=== PATIENT | female | born 1960 | race American Indian/Alaskan Native ===

== ENCOUNTER 2016-07-19 04:46 | Emergency (ER) | payer OTHER ==
[2016-07-19 06:37] VITALS: BP 159/96
--- NOTE | 2016-07-19 07:52 | Emergency Department Report ---
ED Medical Clearance HPI - General Chief complaint: Medical Clearance Stated complaint: MED REFILL Time Seen by Provider: 07/19/16 07:47 Source: patient Mode of arrival: Ambulatory - History of Present Illness Initial comments: 55-year-old female comes in for request of medication refills of her lisinopril and her metformin. Patient reports she has been out of her medication for 1 week. She does disclose that she has an appointment on Tuesday with [facility]. She just does not feel she should wait any longer for her meds. Patient denies any headaches change of vision nausea vomiting. Home medications: Previous Rx's Medication Instructions Recorded Last Taken Type Lisinopril/Hydrochlorothiazide 1 tab PO QDAY #30 tab 07/19/16 Unknown Rx [Zestoretic 20-25 mg] Metformin HCl [Metformin HCl ER] 1,000 mg PO BID #60 [id number] 07/19/16 Unknown Rx Allergies/Adverse reactions: Allergies Allergy/AdvReac Type Severity Reaction Status Date / Time No Known Allergies Allergy Verified 07/19/16 06:32 ED Review of Systems ROS: Stated complaint: MED REFILL Other details as noted in HPI Comment: All other systems reviewed and negative ED Past Medical Hx - Past Medical History Previous Medical History?: Yes Hx Hypertension: Yes Hx Diabetes: Yes - Surgical History Past Surgical History?: Yes Additional Surgical History: Left Ovary - Social History Smoking Status: Never Smoker Substance Use Type: None - Medications Home Medications: Home Medications Medication Instructions Recorded Confirmed Last Taken Type Lisinopril/Hydrochlorothiazide 1 tab PO QDAY #30 tab 07/19/16 Unknown Rx [Zestoretic 20-25 mg] Metformin HCl [Metformin HCl ER] 1,000 mg PO BID #60 [id number] 07/19/16 Unknown Rx ED Physical Exam - General Limitations: No Limitations - Eye Eye exam: Present: normal appearance, PERRL, EOMI - Respiratory Respiratory exam: Present: normal lung sounds bilaterally - Cardiovascular Cardiovascular Exam: Present: regular rate, normal rhythm, normal heart sounds - GI/Abdominal GI/Abdominal exam: Present: soft, normal bowel sounds. Absent: distended, tenderness ED Course Vital Signs 07/19/16 06:32 Temperature 98.4 F Pulse Rate 67 Respiratory 20 Rate Blood Pressure 159/96 O2 Sat by Pulse 100 Oximetry ED Medical Decision Making - Medical Decision Making Has been evaluated by this provider fast track. Discussed the patient we'll give her refills on her lisinopril hydrochlorothiazide 20/25 mg as well as metformin 1000 mg by mouth twice a day. Encouraged patient to keep her appointment for Tuesday for continuity of care. ED Disposition Clinical Impression: HTN (hypertension) Qualifiers: Hypertension type: essential hypertension Qualified Code(s): I10 - Essential ( primary) hypertension Diabetes mellitus Qualifiers: Diabetes mellitus type: type 2 Diabetes mellitus complication status: without complication Disposition: DISCHARGED TO HOME OR SELFCARE Is pt being admited?: No Does the pt Need Aspirin: No Condition: Stable Instructions: Hypertension (ED), Diabetes Mellitus Type 2 in Adults (ED) Additional Instructions: Medication as prescribed keep her appointment for Tuesday where [facility]. Prescriptions: Metformin HCl [Metformin HCl ER] 1,000 mg PO BID #60 [id number] Lisinopril/Hydrochlorothiazide [Zestoretic 20-25 mg] 1 tab PO QDAY #30 tab Referrals: RAGHU HARGROVE MD [Staff Physician] - 3-5 Days
== END 2016-07-19 08:04 | disposition home or self-care (01) ==
LOC: ED 04:46
DX: I10 Essential (primary) hypertension (principal); E11.9 Type 2 diabetes mellitus without complications
CPT/HCPCS: 99282